=== PATIENT | male | born 1985 | race African-American/Black ===

== ENCOUNTER 2019-02-17 09:51 | Emergency (ER) | payer MEDICAID, OTHER ==
[~2019-02-17] VITALS: Ht 180.3 cm; Wt 99.8 kg
[2019-02-17 10:02] VITALS: BP 144/88
== END 2019-02-17 10:27 | disposition home or self-care (01) ==
LOC: ER 09:51
DX: J06.9 Acute upper respiratory infection, unspecified (principal); R42 Dizziness and giddiness; R51 Headache

== ENCOUNTER 2019-10-08 20:01 | Emergency (ER) | payer MEDICAID ==
[~2019-10-08] VITALS: Ht 180.3 cm; Wt 104.3 kg
[2019-10-08 20:02] VITALS: BP 137/89
[2019-10-08] MEDS ORDERED: ACETAMINOPHEN 325 MG TAB PO ONE (20:30)
== END 2019-10-08 20:55 | disposition left against medical advice (07) ==
LOC: ER 20:05
DX: R50.9 Fever, unspecified (principal); R07.0 Pain in throat; M79.10 Myalgia, unspecified site